=== PATIENT | female | born 1990 | race African-American/Black ===

== ENCOUNTER 2016-11-01 13:56 | Emergency (ER) | payer OTHER ==
[2016-11-01 14:02] VITALS: TEMP 98; BMI 18.2
[2016-11-01 15:40] LABS: BASOPHIL 1.2 % (0-2.0); EOSINOPHIL 3.9 % (0-4.5); MCH 24.9 pg (25.7-33.7); MCHC 32.4 g/dl (32.0-36.0); MEAN CELL VOLUME 76.9 fl (80-96); NEUTROPHILS 66.6 % (42.8-82.8); PLATELET COUNT 205 K/MM3 (134-434); RDW 18.2 % (11.6-15.6); WHITE BLOOD COUNT 5.3 K/mm3 (4.0-10.0)
[2016-11-01 15:42] LABS: ALBUMIN 4.3 g/dl (3.4-5.0); ANION GAP 6 (8-16); BILIRUBIN,TOTAL 1.3 mg/dL (0.2-1.0); CO2 25 mmol/L (21-32); CREATININE 0.6 mg/dL (0.55-1.02); GLUCOSE,RANDOM 80 mg/dL (74-106); SGOT/AST 22 U/L (15-37); SGPT/ALT 16 U/L (12-78); TOT PROT 8.1 g/dl (6.4-8.2)
[2016-11-01 15:44] LABS: ALK PHOS 75 U/L (45-117); TROPONIN I < 0.02 ng/ml (0.00-0.05)
--- NOTE | 2016-11-01 16:16 | PDOC ---
History of Present Illness - General Chief Complaint: Chest Pain Stated Complaint: CHEST TIGHTNESS Time Seen by Provider: 11/01/16 14:29 History Source: Patient Exam Limitations: No Limitations - History of Present Illness Initial Comments: 11/01/16 16:23 25-year-old female presents to the ED with episodic chest tightness to her sternal region that occurred about 2 hours ago and resolved within approximately 15 minutes but decided come to the ER since she has history of mitral valve regurgitation with mitral valve replacement currently on Coumadin. Patient currently has no complaints including shortness of breath, palpitations , nausea, dizziness or chest pain. Patient denies any recent change in her Coumadin or enalapril. Presenting Symptoms: Chest Pain Timing/Duration: reports: resolved prior to arrival Severity/Quality: reports: tightness Location: reports: substernal Chest Pain Radiation: reports: no radiation Activities at Onset: reports: none Nitro Today/Relief: Yes: no nitro taken today Aspirin Received prior to arrival (Core Measure): Yes: no aspirin today Associated Symptoms: Yes: Chest Pain/pressure Past History - Past Medical History Allergies/Adverse Reactions: Allergies Allergy/AdvReac Type Severity Reaction Status Date / Time No Known Allergies Allergy Verified 11/01/16 14:02 Home Medications: Ambulatory Orders Enalapril Maleate [Vasotec -] 5 mg PO DAILY #30 tablet 07/11/15 Warfarin Sodium [Coumadin] 4 mg PO HS #30 tablet 07/11/15 Cardiac Disorders: Yes (VALVE REPLACEMENT) Psychiatric Problems: Yes (PANIC ATTACK) - Surgical History Cardiac Surgery: Yes (VALVE REPLACEMENT) - Reproductive History LMP Normal: Yes Is Patient Now?: No - Immunization History Immunization Up to Date: Yes - Psycho/Social/Smoking Cessation Hx Anxiety: Yes Suicidal Ideation: No Smoking History: Never smoked Have you smoked in the past 12 months: No Information on smoking cessation initiated: No Hx Alcohol Use: No Drug/Substance Use Hx: No Substance Use Type: None Patient Lives Alone: No Lives with/in: parents Review of Systems - Review of Systems Able to Perform ROS?: Yes Constitutional: No: Symptoms Reported HEENTM: No: Symptoms Reported Respiratory: No: Symptoms reported Cardiac (ROS): Yes: Chest Tightness ABD/GI: No: Symptoms Reported : No: Symptoms Reported Musculoskeletal: No: Symptoms Reported Integumentary: No: Symptoms Reported Neurological: No: Symptoms reported *Physical Exam - Vital Signs Last Vital Signs Temp Pulse Resp BP Pulse Ox 98 F 90 18 111/75 99 11/01/16 14:01 11/01/16 14:01 11/01/16 14:01 11/01/16 14:01 11/01/16 14:01 - Physical Exam General Appearance: Yes: Nourished, Appropriately Dressed. No: Apparent Distress Neck: positive: Supple Respiratory/Chest: positive: Lungs Clear, Normal Breath Sounds. negative: Chest Tender, Respiratory Distress, Accessory Muscle Use Cardiovascular: positive: Regular Rhythm, Regular Rate. negative: Murmur Gastrointestinal/Abdominal: positive: Soft. negative: Tenderness Extremity: positive: Normal Capillary Refill. negative: Pedal Edema Integumentary: positive: Normal Color, Warm, Moist Neurologic: positive: Motor Strength 5/5 Heart Score/ECG Review - History History: Slightly suspicious - Electrocardiogram EKG: Normal - Age Age: </= 45 - Risk Factors Based on the list above the patient has:: 1-2 risk factors - Troponin Troponin: </= normal limit - Score Heart Score - Total: 1 - ECG Intrepretation Rhythm: Regular Rhythm (rate 87. No acute changes noted.) ED Treatment Course - LABORATORY CBC & Chemistry Diagram: 11/01/16 15:10 11/01/16 15:10 - ADDITIONAL ORDERS Additional order review: Laboratory Results 11/01/16 11/01/16 16:45 15:10 INR 3.80 H Sodium 138 Potassium 3.8 Chloride 107 Carbon Dioxide 25 Anion Gap 6 L BUN 11 D Creatinine 0.6 Creat Clearance w eGFR > 60 Random Glucose 80 Calcium 9.0 Total Bilirubin 1.3 H AST 22 ALT 16 Alkaline Phosphatase 75 Creatine Kinase 85 Troponin I < 0.02 Total Protein 8.1 Albumin 4.3 11/01/16 15:10 RBC 4.87 MCV 76.9 L MCHC 32.4 RDW 18.2 H MPV 9.0 Neutrophils % 66.6 Lymphocytes % 22.4 Monocytes % 5.9 Eosinophils % 3.9 Basophils % 1.2 Medical Decision Making - Medical Decision Making 11/01/16 16:25 Patient with history of mitral valve replacement and hypertension presents the ED with complaints of episodic chest tightness. Patient initially thought it was cardiac related but due to her history of panic attacks now feels that this episode was related to anxiety since she was just being to a friend who got her upset. Patient does have a cardiac workup initiated, INR, urinalysis, and placed on monitor. 11/01/16 18:03 Laboratory Tests 11/01/16 11/01/16 11/01/16 15:10 15:10 16:45 WBC 5.3 Hgb 12.2 Hct 37.5 Plt Count 205 D Neutrophils % 66.6 INR 3.80 H Sodium 138 Potassium 3.8 Chloride 107 Carbon Dioxide 25 Anion Gap 6 L Creatinine 0.6 Creat Clearance w eGFR > 60 Random Glucose 80 Calcium 9.0 Total Bilirubin 1.3 H AST 22 ALT 16 Creatine Kinase 85 Troponin I < 0.02 Patient states had her INR increased to 5 mg last week and has an appointment tomorrow to recheck it and adjust accordingly. Patient has no complaints since arrival and requesting to go home. I will discharge patient home with recommendations to follow-up with a occupational therapy assistant tomorrow. *DC/Admit/Observation/Transfer Diagnosis at time of Disposition: Sensation of chest tightness, Anticoagulation goal of INR 2.5 to 3.5 - Discharge Dispostion Disposition: HOME Condition at time of disposition: Good - Referrals Referrals: Cas Montilla MD [Primary Care Provider] - - Patient Instructions Printed Discharge Instructions: Warfarin Additional Instructions: I recommend that you continue Coumadin and follow-up with your occupational therapy assistant tomorrow. Return to ED if symptoms return. Eat well-balanced meals and stay hydrated throughout the day. May
[2016-11-01 17:16] LABS: INR 3.8 (0.82-1.09); PROTHROMBIN TIME (PATIENT) 42.9 SEC (9.98-11.88)
[2016-11-01 18:25] VITALS: BP 99/64; PULSE 84
--- NOTE | 2016-11-02 09:43 | EKG ---
Test Reason : Blood Pressure : / mmHG Vent. Rate : 087 BPM Atrial Rate : 087 BPM P-R Int : 160 ms QRS Dur : 084 ms QT Int : 380 ms P-R-T Axes : -02 036 -26 degrees QTc Int : 457 ms NORMAL SINUS RHYTHM NONSPECIFIC ST AND T WAVE ABNORMALITY ABNORMAL ECG WHEN COMPARED WITH ECG OF 04-JAN-2016 11:10, NO SIGNIFICANT CHANGE WAS FOUND Confirmed by JOSEMANUEL ALFORD MD ([id number]) on 11/02/2016 9:43:03 AM Referred By: Confirmed By:JOSEMANUEL ALFORD MD
== END 2016-11-01 18:26 | disposition home or self-care (01) ==
LOC: JER 13:56
DX: R07.89 Other chest pain (principal); F41.9 Anxiety disorder, unspecified; I34.0 Nonrheumatic mitral (valve) insufficiency; Z95.4 Presence of other heart-valve replacement; Z79.01 Long term (current) use of anticoagulants
CPT/HCPCS: 36415; 80053; 82550; 84484; 85025; 85610; 93005; 93010; 99282-25

== ENCOUNTER 2016-12-15 10:24 | Emergency (ER) | payer SELFPAY ==
[2016-12-15 10:37] VITALS: BP 111/66; PULSE 89; TEMP 98; BMI 18.2
[2016-12-15 11:40] LABS: INR 2.11 (0.82-1.09); PROTHROMBIN TIME (PATIENT) 23.6 SEC (9.98-11.88)
--- NOTE | 2016-12-15 12:17 | PDOC ---
History of Present Illness - General Chief Complaint: Revisit, Lab Variance Stated Complaint: BLOOD WORK Time Seen by Provider: 12/15/16 10:45 History Source: Patient Exam Limitations: No Limitations - History of Present Illness Initial Comments: 12/15/16 12:11 Here for repeat INR; had manny replacement Severity: mild Associated Symptoms: reports: denies symptoms Past History - Past Medical History Allergies/Adverse Reactions: Allergies Allergy/AdvReac Type Severity Reaction Status Date / Time No Known Allergies Allergy Verified 12/15/16 10:35 Home Medications: Ambulatory Orders Enalapril Maleate [Vasotec -] 5 mg PO DAILY #30 tablet 07/11/15 Warfarin Sodium [Coumadin] 4 mg PO HS #30 tablet 11/01/16 Cardiac Disorders: Yes (VALVE REPLACEMENT) Psychiatric Problems: Yes (PANIC ATTACK) - Surgical History Cardiac Surgery: Yes (VALVE REPLACEMENT) - Immunization History Immunization Up to Date: Yes - Psycho/Social/Smoking Cessation Hx Anxiety: Yes Suicidal Ideation: No Smoking History: Never smoked Have you smoked in the past 12 months: No Hx Alcohol Use: No Drug/Substance Use Hx: No Substance Use Type: None Review of Systems - Review of Systems Constitutional: Yes: Malaise. No: Chills, Fever HEENTM: No: Symptoms Reported Respiratory: No: Symptoms reported Cardiac (ROS): No: Symptoms Reported ABD/GI: No: Symptoms Reported *Physical Exam - Vital Signs Last Vital Signs Temp Pulse Resp BP Pulse Ox 98.0 F 89 18 111/66 98 12/15/16 10:34 12/15/16 10:34 12/15/16 10:34 12/15/16 10:34 12/15/16 10:34 - Physical Exam General Appearance: Yes: Appropriately Dressed. No: Apparent Distress HEENT: positive: TMs Normal, Pharynx Normal Neck: negative: Tender, Rigid Respiratory/Chest: positive: Lungs Clear ED Treatment Course - ADDITIONAL ORDERS Additional order review: Laboratory Results 12/15/16 11:03 INR 2.11 H D Medical Decision Making - Medical Decision Making 12/15/16 12:14 Please call local MD on saturday and review lab value; your medication May need adjustment *DC/Admit/Observation/Transfer Diagnosis at time of Disposition: Laboratory test - Discharge Dispostion Disposition: HOME Condition at time of disposition: Stable Admit: No - Patient Instructions Additional Instructions: please call Local MD on Saturday; your Coumadin dosage may need adjustment
== END 2016-12-15 12:23 | disposition home or self-care (01) ==
LOC: SUPCPDRO 10:24 → JERFT 10:24
DX: D68.8 Other specified coagulation defects (principal); Z95.2 Presence of prosthetic heart valve; Z79.01 Long term (current) use of anticoagulants
CPT/HCPCS: 36415; 85610; 99281-25

== ENCOUNTER 2017-06-17 21:44 | Emergency (ER) | payer SELFPAY ==
[2017-06-17 21:58] VITALS: BMI 18.2
[2017-06-17] MEDS ORDERED: ACETAMINOPHEN 325 MG TABLET (FP) PO ONE (22:36)
--- NOTE | 2017-06-17 22:36 | PDOC ---
History of Present Illness - General Chief Complaint: Cold Symptoms Stated Complaint: COLD SYMPTOMS Time Seen by Provider: 06/17/17 22:24 History Source: Patient Exam Limitations: No Limitations - History of Present Illness Initial Comments: 06/17/17 22:34 Patient is a 26-year-old female with past medical history of mitral valve replacement on Coumadin, who presents to the emergency department with 1 day of body aches, chest pain, congestion, sore throat. Patient states that she is not feeling well and is tearful upon entrance into the exam room. She states that she has not taken her Coumadin tonight because she does not feel well. She has not tried taking Tylenol for her symptoms. Admits to subjective fevers and chills, cough, nausea. Denies shortness of breath, wheezing, diarrhea. Past History - Travel Traveled outside of the country in the last 30 days: No Close contact w/someone who was outside of country & ill: No - Past Medical History Allergies/Adverse Reactions: Allergies Allergy/AdvReac Type Severity Reaction Status Date / Time No Known Allergies Allergy Verified 06/17/17 21:58 Home Medications: Ambulatory Orders Enalapril Maleate [Vasotec -] 5 mg PO DAILY #30 tablet 07/11/15 Warfarin Sodium [Coumadin] 4 mg PO HS #30 tablet 11/01/16 Cardiac Disorders: Yes (Mitral VALVE [id number]) Psychiatric Problems: Yes (PANIC ATTACK) - Surgical History Cardiac Surgery: Yes (VALVE REPLACEMENT 2011) - Immunization History Immunization Up to Date: Yes - Suicide/Smoking/Psychosocial Hx Smoking History: Never smoked Have you smoked in the past 12 months: No Information on smoking cessation initiated: No Hx Alcohol Use: No Drug/Substance Use Hx: No Substance Use Type: None Review of Systems - Review of Systems Able to Perform ROS?: Yes Comments:: 06/17/17 23:38 CONSTITUTIONAL: Present: fevers (subjective), chills, generalized weakness. Absent: diaphoresis , malaise, loss of appetite HEENT: Present: rhinorrhea, nasal congestion. Absent: difficulty swallowing, mouth swelling, ear pain, eye pain, visual Changes CARDIOVASCULAR: Present: Chest pain Absent: loss of consciousness, palpitations, irregular heart rate, peripheral edema RESPIRATORY: Present: cough Absent: cough, shortness of breath, dyspnea with exertion, orthopnea, wheezing, stridor, hemoptysis GASTROINTESTINAL: Present: nausea Absent: abdominal pain, abdominal distension, nausea, vomiting, diarrhea, constipation, melena, hematochezia GENITOURINARY: Absent: dysuria, frequency, urgency, hesitancy, hematuria, flank pain, genital pain MUSCULOSKELETAL: Absent: myalgia, arthralgia, joint swelling SKIN: Absent: rash, itching, pallor HEMATOLOGIC/IMMUNOLOGIC: Absent: easy bleeding, easy bruising, lymphadenopathy, frequent infections ENDOCRINE: Absent: unexplained weight gain, unexplained weight loss, heat intolerance, cold intolerance NEUROLOGIC: Absent: headache, focal weakness or paresthesias, dizziness, unsteady gait, seizure, mental status changes, bladder or bowel incontinence PSYCHIATRIC: Absent: anxiety, depression, suicidal or homicidal ideation, hallucinations. Is the patient limited [place] proficient: No *Physical Exam - Vital Signs Last Vital Signs Temp Pulse Resp BP Pulse Ox 98.5 F 73 18 109/75 100 06/17/17 21:55 06/17/17 21:55 06/17/17 21:55 06/17/17 21:55 06/17/17 21:55 - Physical Exam Comments: 06/17/17 23:39 GENERAL: Well developed, well nourished. Awake and alertx3. Mild distress, laying curled on exam bed, tearful on exam. HEENT: Normocephalic, atraumatic. PERRLA, EOMI. No conjunctival pallor. Sclera are non- icteric. Moist mucous membranes. Oropharynx is clear. NECK: Supple. Full ROM. No JVD. Carotid pulses 2+ and symmetric, without bruits. No thyromegaly. (+) b/l lymphadenopathy. CARDIOVASCULAR: Regular rate and rhythm. Midsystolic click. No murmurs, rubs, or gallops. Distal pulses are 2+ and symmetric. PULMONARY: No evidence of respiratory distress. Lungs clear to auscultation bilaterally. No wheezing, rales or rhonchi. ABDOMINAL: Soft. Non-tender. Non-distended. No rebound or guarding. No organomegaly. Normoactive bowel sounds. MUSCULOSKELETAL Normal range of motion at all joints. No bony deformities or tenderness. No CVA tenderness. EXTREMITIES: No cyanosis. No clubbing. No edema. No calf tenderness. SKIN: Warm and dry. Normal capillary refill. No rashes. No jaundice. NEUROLOGICAL: Alert, awake, appropriate. Cranial nerves 2-12 intact. No deficits to light touch and temperature in face, upper extremities and lower extremities. No motor deficits in the in face, upper extremities and lower extremities. Normoreflexic in the upper and lower extremities. Normal speech. Toes are down- going bilaterally. Gait is normal without ataxia. PSYCHIATRIC: Cooperative. Good eye contact. Appropriate mood and affect. ED Treatment Course - LABORATORY CBC & Chemistry Diagram: 06/18/17 00:50 06/18/17 00:50 Medical Decision Making - Medical Decision Making 06/17/17 23:40 Patient is a 26-year-old female past medical history of mitral valve replacement on Coumadin, who presents to the emergency department with 1 day of fevers and generalized weakness, body aches, chest pain and congestion. Patient has not received her flu vaccination this year. 1.flu swab, throat culture 2.EKG 3.Tylenol 4.transfer to main ED. Sign out was given to Yaneth Tolbert NP, as fast track is currently closed. Informed her of patient's status. Waiting on labs. *DC/Admit/Observation/Transfer Diagnosis at time of Disposition: Viral URI Anemia Qualifiers: Anemia type: unspecified type Qualified Code(s): D64.9 - Anemia, unspecified - Discharge Dispostion Disposition: HOME Condition at time of disposition: Good - Referrals Referrals: Cas Montilla MD [Primary Care Provider] - Call tomorrow - Patient Instructions Printed Discharge Instructions: DI for Common Cold Additional Instructions: drink plenty of fluids. follow up with your doctor tomorrow. take tylenol as needed for fever.
[2017-06-17] MEDS ORDERED: ACETAMINOPHEN 325 MG TABLET (FP) ONE (22:39)
--- NOTE | 2017-06-17 22:53 | PDOC ---
*Physical Exam - Vital Signs Last Vital Signs Temp Pulse Resp BP Pulse Ox 98.5 F 73 18 109/75 100 06/17/17 21:55 06/17/17 21:55 06/17/17 21:55 06/17/17 21:55 06/17/17 21:55 - Physical Exam General Appearance: Yes: Appropriately Dressed HEENT: positive: Tonsillar Erythema, Nasal Congestion Neck: positive: Lymphadenopathy (R), Lymphadenopathy (L) Gastrointestinal/Abdominal: positive: Normal Bowel Sounds, Soft Extremity: positive: Normal Capillary Refill, Normal Inspection, Normal Range of Motion Integumentary: positive: Normal Color, Dry, Warm Neurologic: positive: Fully Oriented, Alert, Normal Mood/Affect ED Treatment Course - LABORATORY CBC & Chemistry Diagram: 06/18/17 00:50 06/18/17 00:50 - RADIOLOGY Radiology Studies Ordered: Category Date Time Status CHEST PA & LAT [RAD] Stat Radiology 06/17/17 22:53 Ordered - Medications Given in the ED: ED Medications Discontinued Medications Generic Name Dose Route Start Last Admin Trade Name Freq PRN Reason Stop Dose Admin Acetaminophen 650 mg 06/17/17 22:36 06/17/17 22:40 Tylenol - PO 06/17/17 22:37 650 mg ONCE ONE Administration Progress Note - Progress Note Progress Note: A: viral syndrome P: cbc cmp normal saline bolus influenza rapid strep chest xray: negative. surgical changes. no acute pathology. ekg Medical Decision Making - Medical Decision Making 06/17/17 23:34 rapid strep neg flu: neg and chest xray pending. 06/18/17 02:00 patient feels better. hgb 8.1 patient has a history of anemia. advised iron supplement. patient will follow up with Dr. Montilla this week. will d/c home. 06/18/17 02:32 patient is requesting her missed dose of coumadin 4mg x1. will give dose prior to discharge 06/18/17 06:18 06/18/17 06:18 *DC/Admit/Observation/Transfer Diagnosis at time of Disposition: Viral URI Anemia Qualifiers: Anemia type: unspecified type Qualified Code(s): D64.9 - Anemia, unspecified - Discharge Dispostion Disposition: HOME Condition at time of disposition: Good - Referrals Referrals: Cas Montilla MD [Primary Care Provider] - Call tomorrow - Patient Instructions Printed Discharge Instructions: DI for Common Cold Additional Instructions: drink plenty of fluids. follow up with your doctor tomorrow. take tylenol as needed for fever.
[2017-06-17] MEDS ORDERED: SODIUM CHLORIDE 500 ML IV STA (23:47)
[2017-06-18 01:16] LABS: BASOPHIL 0.4 % (0-2.0); EOSINOPHIL 3.1 % (0-4.5); MCH 22.5 pg (25.7-33.7); MCHC 31.8 g/dl (32.0-36.0); MEAN CELL VOLUME 70.9 fl (80-96); MEAN PLT VOLUME 8.6 fl (7.5-11.1); NEUTROPHILS 79.6 % (42.8-82.8); PLATELET COUNT 253 K/MM3 (134-434); RDW 18.1 % (11.6-15.6); WHITE BLOOD COUNT 9.7 K/mm3 (4.0-10.0)
[2017-06-18] MEDS ORDERED: WARFARIN NA 2 MG TABLET (UD) PO ONE (02:32)
[2017-06-18 02:53] VITALS: BP 100/78; PULSE 80; TEMP 97.8
--- NOTE | 2017-06-18 14:14 | EKG ---
Test Reason : Blood Pressure : / mmHG Vent. Rate : 089 BPM Atrial Rate : 089 BPM P-R Int : 132 ms QRS Dur : 086 ms QT Int : 376 ms P-R-T Axes : 014 046 -38 degrees QTc Int : 457 ms NORMAL SINUS RHYTHM ST-T ABNORMALITIES IN RIGHT PRECORDIAL LEADS MAY BE DUE TO PERSISTENT JUVENILE T WAVE PATTERN NONSPECIFIC ST-T ABNORMALITIES IN THE INFERIOR LEADS ABNORMAL ECG WHEN COMPARED WITH ECG OF 01-NOV-2016 14:03, NO MAJOR CHANGES SEEN. NO CLINICAL INFORMATION IS AVAILABLE REPEAT INDICATED Confirmed by HUNTER CALDERON MD ([id number]) on 06/18/2017 2:14:00 PM Referred By: Confirmed By:HUNTER CALDERON MD
== END 2017-06-18 02:54 | disposition home or self-care (01) ==
LOC: JERFT 21:44 → JER 21:44
PROC: 3E0337Z Introduction of Electrolytic and Water Balance Substance into Peripheral Vein, Percutaneous Approach (ICD-10-PCS; principal; 2017-06-17)
DX: J06.9 Acute upper respiratory infection, unspecified (principal); B97.89 Other viral agents as the cause of diseases classified elsewhere; D64.9 Anemia, unspecified; Z95.2 Presence of prosthetic heart valve; Z79.01 Long term (current) use of anticoagulants
CPT/HCPCS: 36415; 71020-TC; 85025; 87070; 87430; 87804; 93005; 93010; 99282-25

== ENCOUNTER 2017-10-02 18:32 | Emergency (ER) | payer OTHER ==
--- NOTE | 2017-10-02 19:48 | PDOC ---
Rapid Medical Evaluation Time Seen by Provider: 10/02/17 19:44 Medical Evaluation: Allergies Allergy/AdvReac Type Severity Reaction Status Date / Time No Known Allergies Allergy Verified 06/17/17 21:58 10/02/17 19:45 I have performed a brief in-person evaluation of this patient. The patient presents with a chief complaint of: hx of mitral valve replacement in 2011 on Coumadin) , wants INR checked, denies any symptoms, "i haven't taken my coumadin in a long time" Pertinent physical exam findings: well appearing I have ordered the following: PT/INR The patient will proceed to the ED for further evaluation. Discharge Disposition - Diagnosis Laboratory test - Referrals - Patient Instructions - Post Discharge Activity
[2017-10-02 19:51] VITALS: BP 140/70; PULSE 89; TEMP 97.9; BMI 18.2
--- NOTE | 2017-10-02 20:32 | PDOC ---
History of Present Illness - General Stated Complaint: EVALUATION Time Seen by Provider: 10/02/17 19:44 History Source: Patient Exam Limitations: No Limitations - History of Present Illness Initial Comments: 10/02/17 20:28 This is a 26-year-old female with medical history of mitral valve replacements who presents to emergency department requesting INR checked. Patient stated she went to her primary doctor and was told her insurance wouldn't cover her INR visits and that the primary doctor's machine was broken to check INR results. Patient denies chest pain, shortness of breath, dizziness, palpitations, abdominal pain, nausea, vomiting, diarrhea. Patient states she has an appointment with her tyre retreader at the end of the month. Patient takes 4 mg of warfarin daily for "many years." Past History - Past Medical History Allergies/Adverse Reactions: Allergies Allergy/AdvReac Type Severity Reaction Status Date / Time No Known Allergies Allergy Verified 10/02/17 19:48 Home Medications: Ambulatory Orders Enalapril Maleate [Vasotec -] 5 mg PO DAILY #30 tablet 07/11/15 Warfarin Sodium [Coumadin] 4 mg PO HS #30 tablet 11/01/16 Cardiac Disorders: Yes (Mitral VALVE [id number]) COPD: No Psychiatric Problems: Yes (PANIC ATTACK) - Surgical History Cardiac Surgery: Yes (VALVE REPLACEMENT 2011) - Immunization History Immunization Up to Date: Yes - Suicide/Smoking/Psychosocial Hx Smoking History: Never smoked Have you smoked in the past 12 months: No Information on smoking cessation initiated: No Hx Alcohol Use: No Drug/Substance Use Hx: No Substance Use Type: None Review of Systems - Review of Systems Able to Perform ROS?: Yes Is the patient limited [place] proficient: No Constitutional: No: Symptoms Reported HEENTM: No: Symptoms Reported Respiratory: No: Symptoms reported Cardiac (ROS): No: Symptoms Reported ABD/GI: No: Symptoms Reported : No: Symptoms Reported Musculoskeletal: No: Symptoms Reported Integumentary: No: Symptoms Reported Neurological: No: Symptoms reported *Physical Exam - Vital Signs Last Vital Signs Temp Pulse Resp BP Pulse Ox 97.9 F 89 20 140/70 97 10/02/17 19:49 10/02/17 19:49 10/02/17 19:49 10/02/17 19:49 10/02/17 19:49 - Physical Exam General Appearance: Yes: Appropriately Dressed. No: Apparent Distress HEENT: positive: Normal ENT Inspection Respiratory/Chest: positive: Lungs Clear, Normal Breath Sounds. negative: Respiratory Distress, Accessory Muscle Use Cardiovascular: positive: Regular Rhythm, Regular Rate, S1, S2. negative: Edema , Murmur Integumentary: positive: Normal Color Neurologic: positive: Fully Oriented, Alert, Normal Mood/Affect Medical Decision Making - Medical Decision Making 10/02/17 20:30 A/P: 26-year-old female with history of mitral valve replacements requesting INR checked. Patient currently asymptomatic without bleeding. Will check PT/INR I will discharge the patient if INR is therapeutic 10/02/17 21:42 INR 4.51 Patient instructed to hold her Coumadin tonight follow-up with Dr. Guevara. Patient instructed to call tyre retreader make an appointment within the week. *DC/Admit/Observation/Transfer Diagnosis at time of Disposition: Supratherapeutic INR - Discharge Dispostion Disposition: HOME Condition at time of disposition: Stable Admit: No - Referrals Referrals: Russel Curiel [Primary Care Provider] - - Patient Instructions Additional Instructions: Do not take her Coumadin tonight. Resume Coumadin tomorrow. Make an appointment with her tyre retreader to be seen by Saturday. You have been given a recommendation to see Dr. Guevara. Call to make an appointment to be seen. Return to emergency department for chest pain, shortness of breath, bleeding or any other concerns. Thank you very much for choosing us to provide your emergent healthcare needs. - Post Discharge Activity
[2017-10-02 21:36] LABS: INR 4.51 (0.82-1.09)
== END 2017-10-02 21:50 | disposition home or self-care (01) ==
LOC: JERFT 18:32
DX: D68.8 Other specified coagulation defects (principal); Z51.81 Encounter for therapeutic drug level monitoring; Z79.01 Long term (current) use of anticoagulants; Z95.2 Presence of prosthetic heart valve
CPT/HCPCS: 36415; 85610; 99281-25

== ENCOUNTER 2017-12-30 18:51 | Emergency (ER) | payer OTHER ==
[2017-12-30] MEDS ORDERED: ACETAMINOPHEN 325 MG TABLET (FP) PO ONE (19:13)
--- NOTE | 2017-12-30 19:13 | PDOC ---
Rapid Medical Evaluation Time Seen by Provider: 12/30/17 19:11 Medical Evaluation: Allergies Allergy/AdvReac Type Severity Reaction Status Date / Time No Known Allergies Allergy Verified 10/02/17 19:48 12/30/17 19:11 I have performed a brief in-person evaluation of this patient. The patient presents with a chief complaint of: MCGEE and left thigh pain for 1 day Pertinent physical exam findings: No focal deficits I have ordered the following: CBC, PT, CMP, Tylenol The patient will proceed to the ED for further evaluation. Discharge Disposition - Diagnosis Headache - Referrals - Patient Instructions - Post Discharge Activity
[2017-12-30 19:19] VITALS: BP 107/54; PULSE 109; TEMP 98.4; BMI 18.2
[2017-12-30 19:32] LABS: BASO % 0.9 % (0-2.0); EOS % 3.3 % (0-4.5); HEMATOCRIT 33.1 % (32.4-45.2); HEMOGLOBIN 10.3 GM/dL (10.7-15.3); LYMPH % 15.4 % (8-40); MCH 22.1 pg (25.7-33.7); MCHC 31.3 g/dl (32.0-36.0); MEAN CELL VOLUME 70.7 fl (80-96); MEAN PLT VOLUME 8.4 fl (7.5-11.1); NEUT % 72.4 % (42.8-82.8); PLATELET COUNT 198 K/MM3 (134-434); RBC 4.68 M/mm3 (3.60-5.2); RDW 23.1 % (11.6-15.6)
--- NOTE | 2017-12-30 19:43 | PDOC ---
History of Present Illness - General History Source: Patient - History of Present Illness Timing/Duration: other (this am) Associated Symptoms: denies: nausea/vomiting <Elizabeth Hernández - Last Filed: 12/30/17 19:52> <Spencer Cervanets - Last Filed: 12/30/17 21:14> - General Chief Complaint: Pain, Acute Stated Complaint: PAIN Time Seen by Provider: 12/30/17 19:11 Past History - Past Medical History Cardiac Disorders: Yes (Mitral VALVE [id number]) COPD: No Psychiatric Problems: Yes (PANIC ATTACK) - Surgical History Cardiac Surgery: Yes (VALVE REPLACEMENT 2011) - Immunization History Immunization Up to Date: Yes - Suicide/Smoking/Psychosocial Hx Smoking History: Never smoked Have you smoked in the past 12 months: No Hx Alcohol Use: No Drug/Substance Use Hx: No Substance Use Type: None <Elizabeth Hernández - Last Filed: 12/30/17 19:52> <Spencer Cervantes - Last Filed: 12/30/17 21:14> - Past Medical History Allergies/Adverse Reactions: Allergies Allergy/AdvReac Type Severity Reaction Status Date / Time No Known Allergies Allergy Verified 12/30/17 19:17 Home Medications: Ambulatory Orders Enalapril Maleate [Vasotec -] 5 mg PO DAILY #30 tablet 07/11/15 Warfarin Sodium [Coumadin] 4 mg PO HS #30 tablet 11/01/16 Review of Systems - Review of Systems Constitutional: No: Chills, Fever Respiratory: No: Shortness of Breath Cardiac (ROS): No: Chest Pain, Lightheadedness, Palpitations, Syncope Integumentary: Yes: Rash Neurological: Yes: Headache. No: Numbness, Tingling, Weakness, Dizziness <Elizabeth Hernández - Last Filed: 12/30/17 19:52> *Physical Exam - Vital Signs Last Vital Signs Temp Pulse Resp BP Pulse Ox 98.4 F 109 H 18 107/54 96 12/30/17 19:17 12/30/17 19:17 12/30/17 19:17 12/30/17 19:17 12/30/17 19:17 - Physical Exam General Appearance: Yes: Appropriately Dressed. No: Apparent Distress HEENT: positive: Normal Voice Neck: positive: Supple Respiratory/Chest: negative: Respiratory Distress Extremity: positive: Other Integumentary: positive: Dry, Warm, Bruising (~1cm erythematous macule to R thigh, non-tender, non-blanchable), Other Neurologic: positive: president/gm production & live experiences II-XII NML intact, Fully Oriented, Alert, Normal Mood/ Affect, Motor Strength 5/5 <Elizabeth Hernández - Last Filed: 12/30/17 19:52> - Vital Signs Last Vital Signs Temp Pulse Resp BP Pulse Ox 98.4 F 109 H 18 107/54 96 12/30/17 19:17 12/30/17 19:17 12/30/17 19:17 12/30/17 19:17 12/30/17 19:17 <Spencer Cervantes - Last Filed: 12/30/17 21:14> ED Treatment Course - LABORATORY CBC & Chemistry Diagram: 12/30/17 19:20 12/30/17 19:20 - ADDITIONAL ORDERS Additional order review: 12/30/17 19:20 RBC 4.68 D MCV 70.7 L MCHC 31.3 L RDW 23.1 H D MPV 8.4 Neutrophils % 72.4 Lymphocytes % 15.4 D Monocytes % 8.0 Eosinophils % 3.3 Basophils % 0.9 <Elizabeth Hernández - Last Filed: 12/30/17 19:52> - LABORATORY CBC & Chemistry Diagram: 12/30/17 19:20 12/30/17 19:20 - ADDITIONAL ORDERS Additional order review: Laboratory Results 12/30/17 12/30/17 19:20 19:20 PT with INR 26.90 H INR 2.38 H D Sodium 140 Potassium 4.2 Chloride 109 H Carbon Dioxide 24 Anion Gap 7 L BUN 11 Creatinine 0.9 Random Glucose 90 Calcium 8.6 12/30/17 19:20 RBC 4.68 D MCV 70.7 L MCHC 31.3 L RDW 23.1 H D MPV 8.4 Neutrophils % 72.4 Lymphocytes % 15.4 D Monocytes % 8.0 Eosinophils % 3.3 Basophils % 0.9 - Medications Given in the ED: ED Medications Discontinued Medications Generic Name Dose Route Start Last Admin Trade Name Freq PRN Reason Stop Dose Admin Acetaminophen 650 mg 12/30/17 19:13 12/30/17 20:00 Tylenol - PO 12/30/17 19:14 650 mg ONCE ONE Administration <Spencer Cervantes - Last Filed: 12/30/17 21:14> Medical Decision Making - Medical Decision Making 12/30/17 19:38 27-year-old female, s/p mitral valve replacement remotely, has been on coumadin for many years, here for evaluation after patient noticed oozing to her right thigh on awakening this a.m. Does not remember any specific injuries. Last INR was 2.[address] Montilla's office 2 weeks ago per patient. 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 Patient also complaining of vague right-sided headache since yesterday, similar to headaches prior to her menses. States MCGEE has since improved spontaneously. States she is due for her menses any day now. No dizziness, visual changes, photophobia, n/v. States she is mainly here for INR check given spontaneous bruising See exam Spontaneous ecchymosis to R thigh No trauma -will check INR (therapeutic range 2.5-3.5) given coumadin use -anticipate dc if blood work normal MCGEE Recurrent and premenstrual as in the past Well sivan and alert w/ intact neuro exam No suspicion for serious intracranial pathology at this time -To continue tylenol as needed 12/30/17 19:52 Pt signed out to VEENA Cervantes pending labs at this time <Elizabeth Hernández - Last Filed: 12/30/17 19:52> *DC/Admit/Observation/Transfer <Elizabeth Hernández - Last Filed: 12/30/17 19:52> - Discharge Dispostion Decision to Admit order: No <Spencer Cervantes - Last Filed: 12/30/17 21:14> Diagnosis at time of Disposition: Ecchymosis - Discharge Dispostion Disposition: HOME Condition at time of disposition: Stable - Referrals Referrals: Lona Montilla [Primary Care Provider] - - Patient Instructions Printed Discharge Instructions: DI for Hematoma (Bruise) Additional Instructions: Your Coumadin level is slightly below normal range of where it should be for valvular prophylaxis. Follow up with your contract attorney in the next day or 2 to have this level adjusted the bruise on your leg should resolve within the next few days. Return to the emergency room if her symptoms worsen or go unresolved prior to follow-up
[2017-12-30 19:52] LABS: INR 2.38 (0.82-1.09); PROTHROMBIN TIME (PATIENT) 26.9 SEC (9.7-13.0)
[2017-12-30] MEDS ORDERED: ACETAMINOPHEN 325 MG TABLET (FP) ONE (19:57)
[2017-12-30 20:02] LABS: ANION GAP 7 (8-16); BLOOD UREA NITROGEN 11 mg/dL (7-18); CALCIUM 8.6 mg/dL (8.5-10.1); CHLORIDE 109 mmol/L (98-107); CO2 24 mmol/L (21-32); CREATININE 0.9 mg/dL (0.55-1.02); GLUCOSE,RANDOM 90 mg/dL (74-106); POTASSIUM 4.2 mmol/L (3.5-5.1); SODIUM 140 mmol/L (136-145)
== END 2017-12-30 21:17 | disposition home or self-care (01) ==
LOC: JERFT 18:51
DX: R51 Headache (principal); R23.3 Spontaneous ecchymoses; Z79.01 Long term (current) use of anticoagulants; Z95.2 Presence of prosthetic heart valve
CPT/HCPCS: 36415; 80048; 85025; 85610; 99281-25

== ENCOUNTER 2018-04-12 12:53 | Emergency (ER) | payer OTHER ==
[2018-04-12 13:02] VITALS: BP 104/54; PULSE 103; TEMP 98.4; BMI 18.2
--- NOTE | 2018-04-12 13:26 | PDOC ---
History of Present Illness - General Chief Complaint: Sore Throat Stated Complaint: CHEST HURTING - History of Present Illness Initial Comments: 04/12/18 13:23 27-year-old female with night sweats and subjective fever as well as chills starting last night and facial congestion as well as cough. She has a past medical history significant for mitral valve prolapse she takes Coumadin and enalapril. Past History - Past Medical History Allergies/Adverse Reactions: Allergies Allergy/AdvReac Type Severity Reaction Status Date / Time No Known Allergies Allergy Verified 04/12/18 12:58 Home Medications: Ambulatory Orders Amox-Tr/K Cl [Augmentin - 875Mg Tablet] 1 tab PO BID #20 tablet 04/12/18 Cardiac Disorders: Yes (Mitral VALVE [id number]) COPD: No Psychiatric Problems: Yes (PANIC ATTACK) - Surgical History Cardiac Surgery: Yes (VALVE REPLACEMENT 2011) - Immunization History Immunization Up to Date: Yes - Suicide/Smoking/Psychosocial Hx Smoking History: Never smoked Have you smoked in the past 12 months: No Hx Alcohol Use: No Drug/Substance Use Hx: No Substance Use Type: None Review of Systems - Review of Systems Constitutional: Yes: Chills, Fever, Malaise, Night Sweats, Weakness Respiratory: Yes: Cough All Other Systems: Reviewed and Negative *Physical Exam - Vital Signs Last Vital Signs Temp Pulse Resp BP Pulse Ox 98.4 F 103 H 12 104/54 96 04/12/18 12:59 04/12/18 12:59 04/12/18 12:59 04/12/18 12:59 04/12/18 12:59 - Physical Exam Comments: HEAD: NC/AT EYES: Conjuntiva clear Ears: Canals and TM's normal NOSE: No d/c THROAT: Moist mucous membrances, oral pharanx clear, uvula midline NECK: Supple without adenopathy CARDIAC: S1 S2 LUNGS: CTA Full and Equal breath sounds ABDOMEN: Soft NT ND MS: Full ROM in all joints without edema NEUROLOGIC: No gross sensory or motor deficits, NVID SKIN: Normal color and temperature no lesions or rashes 04/12/18 13:24 Medical Decision Making - Medical Decision Making I will treat her with Augmentin do to her mitral valve prolapse 04/12/18 13:24 *DC/Admit/Observation/Transfer Diagnosis at time of Disposition: Sinusitis - Discharge Dispostion Disposition: HOME Condition at time of disposition: Stable Decision to Admit order: No - Referrals Referrals: Cas Montilla MD [Primary Care Provider] - - Patient Instructions Printed Discharge Instructions: Sinusitis, DI for Sinusitis Additional Instructions: Take the antibiotics as directed and finish the entire course. Follow-up in the emergency room should her symptoms worsen or go unresolved. Otherwise follow up with her primary care physician in 2-3 days for further evaluation and treatment options. - Post Discharge Activity
[2018-04-12] MEDS ORDERED: ACETAMINOPHEN 500 MG TABLET (FP) ONE (13:28)
[2018-04-12] MEDS ORDERED: ACETAMINOPHEN 500 MG TABLET (FP) PO ONE (13:28)
== END 2018-04-12 13:30 | disposition home or self-care (01) ==
LOC: JERFT 12:53
DX: J01.90 Acute sinusitis, unspecified (principal); Z79.01 Long term (current) use of anticoagulants; Z95.2 Presence of prosthetic heart valve; F41.9 Anxiety disorder, unspecified
CPT/HCPCS: 99281-25

== ENCOUNTER 2018-04-14 20:10 | Emergency (ER) | payer OTHER ==
[2018-04-14 20:23] VITALS: BP 113/83; PULSE 100; TEMP 98.2; BMI 18.2
--- NOTE | 2018-04-14 20:23 | PDOC ---
Rapid Medical Evaluation Chief Complaint: Lightheaded Time Seen by Provider: 04/14/18 20:21 Medical Evaluation: Allergies Allergy/AdvReac Type Severity Reaction Status Date / Time No Known Allergies Allergy Verified 04/12/18 12:58 Vital Signs Temp Pulse Resp BP Pulse Ox 98.2 F 100 H 20 113/83 90 L 04/14/18 20:18 04/14/18 20:18 04/14/18 20:18 04/14/18 20:18 04/14/18 20:18 04/14/18 20:24 This is a 27-year-old s/p mitral valve replacement 2011 and PE 2014 on warfarin who presents with 3 days of cough, nasal congestion, and malaise. No chest pain , feels "congested." Seen 04/12 and rx Augmentin for sinusitis which she did not take. V/s on arrival notable for P 100 and SpO2 90%. Alert, oriented, no distress. Lungs CTAB, no tachypnea, speaking full sentences. -Basic labs including INR (patient states has been adherent to Coumadin, notes recent dose increase from 4mg to 5mg) -Pgu -CXR -To Main ED for further evaluation Discharge Disposition - Diagnosis H/O mitral valve replacement with mechanical valve, Cough, Hypoxia - Referrals - Patient Instructions - Post Discharge Activity
--- NOTE | 2018-04-14 20:47 | PDOC ---
History of Present Illness - General Chief Complaint: Chest Pain Stated Complaint: COLD SYMPTOMS Time Seen by Provider: 04/14/18 20:21 Past History - Past Medical History Allergies/Adverse Reactions: Allergies Allergy/AdvReac Type Severity Reaction Status Date / Time No Known Allergies Allergy Verified 04/12/18 12:58 Home Medications: Ambulatory Orders Warfarin Sodium [Coumadin] 5 mg PO HS 04/14/18 Cardiac Disorders: Yes (Mitral VALVE [id number]) COPD: No DVT: No Dementia: No Psychiatric Problems: Yes (PANIC ATTACK) Other medical history: Pulmonary Embolus - Surgical History Cardiac Surgery: Yes (mitral VALVE REPLACEMENT 2011) - Immunization History Immunization Up to Date: Yes - Suicide/Smoking/Psychosocial Hx Smoking History: Never smoked Have you smoked in the past 12 months: No Information on smoking cessation initiated: No Hx Alcohol Use: No Drug/Substance Use Hx: No Substance Use Type: None *Physical Exam - Vital Signs Last Vital Signs Temp Pulse Resp BP Pulse Ox 98.2 F 100 H 20 113/83 90 L 04/14/18 20:18 04/14/18 20:18 04/14/18 20:18 04/14/18 20:18 04/14/18 20:18 *DC/Admit/Observation/Transfer Diagnosis at time of Disposition: H/O mitral valve replacement with mechanical valve, Cough, Hypoxia - Referrals - Patient Instructions - Post Discharge Activity
[2018-04-14 21:55] LABS: BASO % 1.2 % (0-2.0); EOS % 5.9 % (0-4.5); HEMATOCRIT 33.3 % (32.4-45.2); HEMOGLOBIN 10.5 GM/dL (10.7-15.3); LYMPH % 20.4 % (8-40); MCH 21.3 pg (25.7-33.7); MCHC 31.6 g/dl (32.0-36.0); MEAN CELL VOLUME 67.3 fl (80-96); MEAN PLT VOLUME 8.6 fl (7.5-11.1); MONO % 6.8 % (3.8-10.2); NEUT % 65.7 % (42.8-82.8); PLATELET COUNT 215 K/MM3 (134-434); RBC 4.94 M/mm3 (3.60-5.2); WHITE BLOOD COUNT 6.9 K/mm3 (4.0-10.0)
[2018-04-14 22:11] LABS: INR 5.84 (0.83-1.09)
[2018-04-14 22:22] LABS: ALBUMIN 4.2 g/dl (3.4-5.0); ALK PHOS 87 U/L (45-117); ANION GAP 8 MMOL/L (8-16); BILIRUBIN,TOTAL 1.2 mg/dL (0.2-1.0); BLOOD UREA NITROGEN 10 mg/dL (7-18); CALCIUM 8.9 mg/dL (8.5-10.1); CHLORIDE 106 mmol/L (98-107); CO2 26 mmol/L (21-32); CREATININE 0.8 mg/dL (0.55-1.02); GLUCOSE,RANDOM 93 mg/dL (74-106); POTASSIUM 3.8 mmol/L (3.5-5.1); SGOT/AST 23 U/L (15-37); SGPT/ALT 17 U/L (12-78); SODIUM 140 mmol/L (136-145); TOT PROT 8.1 g/dl (6.4-8.2)
[2018-04-14 22:24] LABS: ANISOCYTOSIS 1+; PLATELET ESTIMATE ADEQUATE
--- NOTE | 2018-04-14 22:32 | PDOC ---
History of Present Illness <China Tolbert - Last Filed: 04/14/18 23:04> - General History Source: Patient Exam Limitations: No Limitations - History of Present Illness Initial Comments: 04/15/18 00:44 Patient is a 27 year old female with a significant past medical history of P.E, who presents to the ED with complaints of throat pain that began earlier this week. Patient reports experiencing gradually increased throat pain with associated head pain, non productive cough, and nasal congestion, prompting her to come into the ED for further evaluation. Patient's Pulse Ox was noticed to be 90 in triage but 94 once brought into the ED. Chest x ray conducted with results showing no obvious infiltrates. Denies chest pain,. Denies nausea, vomiting. Denies fevers, chills. Denies contact with sick individuals, out of state travelling. Denies dysuria, hematuria. Denies any other symptoms. Allergies: none Social history: No smoking. No alcohol. No illicit drugs. Surgical history: Mitral Valve replacement. PMD: Dr. Russel corbett <Justo Brito - Last Filed: 04/15/18 00:45> - General Chief Complaint: Chest Pain Stated Complaint: COLD SYMPTOMS Time Seen by Provider: 04/14/18 20:21 Past History - Past Medical History Cardiac Disorders: Yes (Mitral VALVE [id number]) COPD: No DVT: No Dementia: No Psychiatric Problems: Yes (PANIC ATTACK) Other medical history: Pulmonary Embolus - Surgical History Cardiac Surgery: Yes (mitral VALVE REPLACEMENT 2011) - Immunization History Immunization Up to Date: Yes - Suicide/Smoking/Psychosocial Hx Smoking History: Never smoked Have you smoked in the past 12 months: No Information on smoking cessation initiated: No Hx Alcohol Use: No Drug/Substance Use Hx: No Substance Use Type: None <China Tolbert - Last Filed: 04/14/18 23:04> <Justo Brito - Last Filed: 04/15/18 00:45> - Past Medical History Allergies/Adverse Reactions: Allergies Allergy/AdvReac Type Severity Reaction Status Date / Time No Known Allergies Allergy Verified 04/12/18 12:58 Home Medications: Ambulatory Orders Warfarin Sodium [Coumadin] 5 mg PO HS 04/14/18 Review of Systems - Review of Systems Able to Perform ROS?: Yes Comments:: 04/15/18 00:44 CONSTITUTIONAL: Absent: fever, chills, diaphoresis, generalized weakness, malaise, loss of appetite HEENT: +Sore throat. +Head pain. Absent: rhinorrhea, nasal congestion, throat swelling, difficulty swallowing, mouth swelling, ear pain, eye pain, visual changes CARDIOVASCULAR: Absent: chest pain, syncope, palpitations, irregular heart rate, lightheadedness , peripheral edema RESPIRATORY: +cough. Absent: shortness of breath, dyspnea with exertion, orthopnea, wheezing, stridor , hemoptysis GASTROINTESTINAL: Absent: abdominal pain, abdominal distension, nausea, vomiting, diarrhea, constipation, melena, hematochezia GENITOURINARY: Absent: dysuria, frequency, urgency, hesitancy, hematuria, flank pain, genital pain MUSCULOSKELETAL: Absent: myalgia, arthralgia, joint swelling SKIN: Absent: rash, itching, pallor HEMATOLOGIC/IMMUNOLOGIC: Absent: easy bleeding, easy bruising, lymphadenopathy, frequent infections ENDOCRINE: Absent: unexplained weight gain, unexplained weight loss, heat intolerance, cold intolerance NEUROLOGIC: Absent: headache, focal weakness or paresthesias, dizziness, unsteady gait, seizure, mental status changes, bladder or bowel incontinence PSYCHIATRIC: Absent: anxiety, depression, suicidal or homicidal ideation, hallucinations. <Justo Brito - Last Filed: 04/15/18 00:45> *Physical Exam - Vital Signs Last Vital Signs Temp Pulse Resp BP Pulse Ox 98.2 F 100 H 20 113/83 90 L 04/14/18 20:18 04/14/18 20:18 04/14/18 20:18 04/14/18 20:18 04/14/18 20:18 <China Tolbert - Last Filed: 04/14/18 23:04> - Vital Signs Last Vital Signs Temp Pulse Resp BP Pulse Ox 98.2 F 100 H 20 113/83 90 L 04/14/18 20:18 04/14/18 20:18 04/14/18 20:18 04/14/18 20:18 04/14/18 20:18 - Physical Exam Comments: 04/15/18 00:44 GENERAL: Well developed, well nourished. Awake and alert. In no acute distress. HEENT: Normocephalic, atraumatic. PERRLA, EOMI. No conjunctival pallor. Sclerae are non -icteric. Moist mucous membranes. Oropharynx is clear. NECK: Supple. Full ROM. No JVD. Carotid pulses 2+ and symmetric, without bruits. No thyromegaly. No lymphadenopathy. CARDIOVASCULAR: +Murmur. +Mechanical valve. Regular rate and rhythm. No rubs, or gallops. Distal pulses are 2+ and symmetric. PULMONARY: +Rhinorrhea. No evidence of respiratory distress. Lungs clear to auscultation bilaterally. No wheezing, rales or rhonchi. ABDOMINAL: Soft. Non-tender. Non-distended. No rebound or guarding. No organomegaly. Normoactive bowel sounds. MUSCULOSKELETAL Normal range of motion at all joints. No bony deformities or tenderness. No CVA tenderness. EXTREMITIES: No cyanosis. No clubbing. No edema. No calf tenderness. SKIN: Warm and dry. Normal capillary refill. No rashes. No jaundice. NEUROLOGICAL: Alert, awake, appropriate. Cranial nerves 2-12 intact. No deficits to light touch and temperature in face, upper extremities and lower extremities. No motor deficits in the in face, upper extremities and lower extremities. Normoreflexic in the upper and lower extremities. Normal speech. Toes are downgoing bilaterally. Gait is normal without ataxia. PSYCHIATRIC: Cooperative. Good eye contact. Appropriate mood and affect. <Justo Brito - Last Filed: 04/15/18 00:45> ED Treatment Course - LABORATORY CBC & Chemistry Diagram: 04/14/18 21:45 04/14/18 21:45 - ADDITIONAL ORDERS Additional order review: Laboratory Results 04/14/18 04/14/18 04/14/18 21:45 21:45 21:30 PT with INR 66.00 H INR 5.84 H* Sodium 140 Potassium 3.8 Chloride 106 Carbon Dioxide 26 Anion Gap 8 BUN 10 Creatinine 0.8 Creat Clearance w eGFR > 60 Random Glucose 93 Calcium 8.9 Total Bilirubin 1.2 H AST 23 ALT 17 Alkaline Phosphatase 87 Total Protein 8.1 Albumin 4.2 Urine HCG, Qual Negative 04/14/18 21:45 RBC 4.94 MCV 67.3 L MCHC 31.6 L RDW 21.0 H MPV 8.6 Neutrophils % 65.7 Lymphocytes % 20.4 D Monocytes % 6.8 Eosinophils % 5.9 H Basophils % 1.2 <China Tolbert - Last Filed: 04/14/18 23:04> - LABORATORY CBC & Chemistry Diagram: 04/14/18 21:45 04/14/18 21:45 - ADDITIONAL ORDERS Additional order review: Laboratory Results 04/14/18 04/14/18 04/14/18 21:45 21:45 21:30 PT with INR 66.00 H INR 5.84 H* Sodium 140 Potassium 3.8 Chloride 106 Carbon Dioxide 26 Anion Gap 8 BUN 10 Creatinine 0.8 Creat Clearance w eGFR > 60 Random Glucose 93 Calcium 8.9 Total Bilirubin 1.2 H AST 23 ALT 17 Alkaline Phosphatase 87 Total Protein 8.1 Albumin 4.2 Urine HCG, Qual Negative 04/14/18 21:45 RBC 4.94 MCV 67.3 L MCHC 31.6 L RDW 21.0 H MPV 8.6 Neutrophils % 65.7 Lymphocytes % 20.4 D Monocytes % 6.8 Eosinophils % 5.9 H Basophils % 1.2 - Medications Given in the ED: ED Medications Discontinued Medications Generic Name Dose Route Start Last Admin Trade Name Dwayne PRN Reason Stop Dose Admin Acetaminophen 650 mg 04/14/18 22:45 04/14/18 23:16 Tylenol - PO 04/14/18 22:46 650 mg ONCE ONE Administration Albuterol/Ipratropium 1 amp 04/14/18 22:39 04/14/18 23:16 Duoneb - NEB 04/14/18 22:40 1 amp ONCE ONE Administration <Justo Brito - Last Filed: 04/15/18 00:45> *DC/Admit/Observation/Transfer <China Tolbert - Last Filed: 04/14/18 23:04> - Attestations Scribe Attestion: 04/15/18 00:45 Documentation prepared by Justo Brito, acting as medical officer for China Tolbert MD. <Justo Brito - Last Filed: 04/15/18 00:45> Diagnosis at time of Disposition: H/O mitral valve replacement with mechanical valve, Cough, Nasal congestion, Viral URI, Supratherapeutic INR - Discharge Dispostion Disposition: HOME Condition at time of disposition: Stable - Referrals Referrals: Russel Corbett [Primary Care Provider] - - Patient Instructions Printed Discharge Instructions: DI for Cough -- Adult, DI for Nasal Congestion Additional Instructions: PLEASE FOLLOW UP WITH YOUR DOCTOR THIS WEEK - Post Discharge Activity
[2018-04-14] MEDS ORDERED: ALBUTEROL SO4 2.5/IPRATROPIUM 0.5 INH SOL 3 ML VIAL.NEB. NEB ONE ×2 (22:39→22:52)
[2018-04-14] MEDS ORDERED: ACETAMINOPHEN 325 MG TABLET (FP) PO ONE (22:45)
[2018-04-14] MEDS ORDERED: ACETAMINOPHEN 325 MG TABLET (FP) ONE (22:52)
--- NOTE | 2018-04-16 10:50 | EKG ---
Test Reason : Blood Pressure : / mmHG Vent. Rate : 094 BPM Atrial Rate : 094 BPM P-R Int : 148 ms QRS Dur : 086 ms QT Int : 368 ms P-R-T Axes : -11 041 -28 degrees QTc Int : 460 ms NORMAL SINUS RHYTHM PROLONGED QT ABNORMAL ECG WHEN COMPARED WITH ECG OF 18-JUN-2017 00:37, NO SIGNIFICANT CHANGE WAS FOUND Confirmed by JOSTIN SCHMITZ MD ([id number]) on 04/16/2018 10:49:57 AM Referred By: Confirmed By:JOSTIN SCHMITZ MD
== END 2018-04-14 23:30 | disposition home or self-care (01) ==
LOC: JER 20:10
PROC: 3E0F7GC Introduction of Other Therapeutic Substance into Respiratory Tract, Via Natural or Artificial Opening (ICD-10-PCS; principal; 2018-04-14)
DX: J06.9 Acute upper respiratory infection, unspecified (principal); R09.02 Hypoxemia; D68.8 Other specified coagulation defects; Z86.711 Personal history of pulmonary embolism; Z79.01 Long term (current) use of anticoagulants; Z95.4 Presence of other heart-valve replacement
CPT/HCPCS: 36415; 71046-TC-FY; 80053; 84703; 85025; 85610; 93005; 93010; 94640; 99283-25; J7620

== ENCOUNTER 2018-09-03 14:13 | Emergency (ER) | payer OTHER ==
[2018-09-03 14:23] VITALS: TEMP 98.2; BMI 18.8
--- NOTE | 2018-09-03 14:25 | PDOC ---
Rapid Medical Evaluation Chief Complaint: Respiratory Medical Evaluation: Allergies Allergy/AdvReac Type Severity Reaction Status Date / Time No Known Allergies Allergy Verified 04/12/18 12:58 Vital Signs Temp Pulse Resp BP Pulse Ox 98.2 F 103 H 18 101/58 L 95 09/03/18 14:17 09/03/18 14:17 09/03/18 14:17 09/03/18 14:17 09/03/18 14:17 I have performed a brief in-person evaluation of this patient. The patient presents with a chief complaint of: Hx of mitral valve replacement 2011 (on Coumadin) Dry cough x 2 days along with mild nasal/chest congestion. Denies CP/SOB; mentions taking in deep breaths causes her to cough, but denies pain in chest Pertinent physical exam findings: Lungs clear, in NAD I have ordered the following: UCG The patient will proceed to the ED for further evaluation. 09/03/18 14:24 Discharge Disposition - Discharge Dispostion Condition at time of disposition: Stable - Referrals - Patient Instructions - Post Discharge Activity
--- NOTE | 2018-09-03 17:04 | PDOC ---
History of Present Illness - General Chief Complaint: Respiratory Stated Complaint: CHEST PAIN Time Seen by Provider: 09/03/18 16:47 History Source: Patient Exam Limitations: No Limitations Past History - Past Medical History Allergies/Adverse Reactions: Allergies Allergy/AdvReac Type Severity Reaction Status Date / Time No Known Allergies Allergy Verified 04/12/18 12:58 Home Medications: Ambulatory Orders Warfarin Sodium [Coumadin] 5 mg PO HS 04/14/18 Cardiac Disorders: Yes (Mitral VALVE [id number]) COPD: No DVT: No Dementia: No Psychiatric Problems: Yes (PANIC ATTACK) - Surgical History Cardiac Surgery: Yes (mitral VALVE REPLACEMENT 2011) - Immunization History Immunization Up to Date: Yes - Suicide/Smoking/Psychosocial Hx Smoking History: Never smoked Have you smoked in the past 12 months: No Information on smoking cessation initiated: No Hx Alcohol Use: No Drug/Substance Use Hx: No Substance Use Type: None *Physical Exam - Vital Signs Last Vital Signs Temp Pulse Resp BP Pulse Ox 98.2 F 103 H 18 101/58 L 95 09/03/18 14:17 09/03/18 14:17 09/03/18 14:17 09/03/18 14:17 09/03/18 14:17 Moderate Sedation - Procedure Monitoring Vital Signs: Procedure Monitoring Vital Signs Temperature 98.2 F 09/03/18 14:17 Pulse Rate 103 H 09/03/18 14:17 Respiratory Rate 18 09/03/18 14:17 Blood Pressure 101/58 L 09/03/18 14:17 O2 Sat by Pulse Oximetry (%) 95 09/03/18 14:17 ED Treatment Course - LABORATORY CBC & Chemistry Diagram: 09/03/18 17:24 09/03/18 17:24 - ADDITIONAL ORDERS Additional order review: Laboratory Results 09/03/18 15:40 Urine HCG, Qual Negative Medical Decision Making - Medical Decision Making Pt was seen at bedside, also will be seen by attending Dr. Redmond. Pt presenting with dry nasal congestion, dry cough, chest tightness, and frontal headache x2 days. Pt stated her INR tested on Saturday this week was 2.1, done in her PCPs office. PE showed [] Considering viral URI vs pneumonia vs PE vs endocarditis vs ACS. Pt has complex history with MV replacement, period of non-compliance with anti-coagulants, and PE. Pt currently anti-coagulated, but had variable INR (supratherapeutic and subtherapeutic over the past 6 months). Ordered work-up including CBC, CMP, PT/INR, D-dimer, troponin and chest x-ray. Provided 650 mg PO tylenol and albuterol nebulizer treatment for improvement of headache and chest tightness. Will continue to reassess pt and monitor for symptomatic improvement. Labs sent and pending. Chest x-ray will be obtained shortly. ECG: HR 96, intervals WNL, NSR. TWIs in inferior leads, flattened in lateral leads (compared to prior ECG 03/2018) -- will obtain troponin considering new ST segment changes. 09/03/18 17:58 CBC: generally WNL, pt anemic but within her baseline. CMP WNL. Trop <.02 Chest x-ray showed mild hilar thickening compared to prior x-ray, no lobar infiltrates. Pending INR and D-dimer. 09/03/18 18:31 D-dimer negative (263). INR 3.74 Considering normal lab results and imaging pt can be discharged to home with follow-up. Pt advised to follow-up with PCP in 1-2 days. Strict return precautions provided with pt understanding. 09/03/18 18:48 HR in the 90s, O2 sat 92-95% on RA, pt had thick acrylic nails on, difficult to obtain accurate O2. Pt not dyspneic, moving much better air after the nebulizer treatment, able to ambulate with no discomfort on RA. 09/03/18 19:26 *DC/Admit/Observation/Transfer Diagnosis at time of Disposition: Viral URI, H/O mitral valve replacement with mechanical valve - Discharge Dispostion Disposition: HOME Condition at time of disposition: Good Decision to Admit order: No - Referrals Referrals: Cas Montilla MD [Primary Care Provider] - - Patient Instructions Printed Discharge Instructions: DI for Viral Upper Respiratory Infection -- Adult Additional Instructions: You were seen in the ER today for cough, chest pressure, and congestion. The results of your labs and imaging today were normal. Please follow-up with your primary care doctor within 1-2 days to discuss your visit and make sure your symptoms have improved. Please return to the ER if you have any worsening chest pressure or shortness of breath, development of fevers or chills, loss of consciousness, inability to tolerate food or fluids, or any other concerns. INR today: 3.74 D-dimer 263 - Post Discharge Activity
[2018-09-03] MEDS ORDERED: ACETAMINOPHEN 325 MG TABLET (FP) PO ONE (17:05)
[2018-09-03] MEDS ORDERED: ALBUTEROL SO4 0.083% IH SOL 2.5 MG/3 ML VIAL.NEB. NEB ONE ×2 (17:05→17:18)
[2018-09-03] MEDS ORDERED: ACETAMINOPHEN 325 MG TABLET (FP) ONE (17:18)
[2018-09-03 18:08] LABS: BASO % 0.8 % (0-2.0); EOS % 2.2 % (0-4.5); HEMOGLOBIN 10.2 GM/dL (10.7-15.3); LYMPH % 14.2 % (8-40); MCH 22.6 pg (25.7-33.7); MCHC 32.1 g/dl (32.0-36.0); MEAN CELL VOLUME 70.5 fl (80-96); MONO % 7.3 % (3.8-10.2); NEUT % 75.5 % (42.8-82.8); PLATELET COUNT 220 K/MM3 (134-434); RBC 4.54 M/mm3 (3.60-5.2); RDW 20.9 % (11.6-15.6); WHITE BLOOD COUNT 7.4 K/mm3 (4.0-10.0)
--- NOTE | 2018-09-03 18:10 | PDOC ---
Attending Attestation - Resident Resident Name: Dianna Khan - ED Attending Attestation I have performed the following: I have examined & evaluated the patient, The case was reviewed & discussed with the resident, I agree w/resident's findings & plan, Exceptions are as noted - HPI HPI: 09/03/18 18:08 The patient is a 27 year old female with a significant PMH of PE and mitral valve replacement in 2011 on coumadin who presents to the emergency department with dry cough, nasal congestion, and chest tightness for the past 2 days. Patient is also complaining of a frontal headache for the past three days, for which she took Tylenol with some improvement. Patient notes the chest tightness when she coughs. Denies any chest pain at rest. Pt states that she has multiple family members with similar symptoms. Patient states she had her INR checked 2 days ago by her PCPs office, which was 2 then. The patient denies shortness of breath. Denies leg swelling. Denies fever, chills, nausea, vomit, diarrhea and constipation. Denies dysuria, frequency, urgency and hematuria. Allergies: NKA Past surgical history: None reported. Social history: No reported alcohol, drug, or cigarette use. PCP: Dr. Cas Montilla - Physicial Exam PE: 09/03/18 18:09 "GENERAL: Awake, alert, and fully oriented, in no acute distress. HEAD: No signs of trauma EYES: PERRLA, EOMI, sclera anicteric, conjunctiva clear ENT: Auricles normal inspection, hearing grossly normal, nares patent, oropharynx clear without exudates. Moist mucosa NECK: Nontender, no stepoffs, Normal ROM, supple, no lymphadenopathy, JVD, or masses LUNGS: Breath sounds equal, clear to auscultation bilaterally. No wheezes, and no crackles HEART: Regular rate and rhythm, normal S1 and S2, no murmurs, rubs or gallops ABDOMEN: Soft, nontender, normoactive bowel sounds. No guarding, no rebound. No masses EXTREMITIES: Normal range of motion, no edema. No clubbing or cyanosis. No cords, erythema, or tenderness NEUROLOGICAL: Cranial nerves II through XII intact. 5/5 strength and sensation in all extremities, Normal speech, normal gait, normal cerebellar function SKIN: Warm, Dry, normal turgor, no rashes or lesions noted. - Medical Decision Making 09/03/18 18:09 27 F with URI-like symptoms. Suspect viral syndrome. However, pt has h/o PE and is complaining of tightness in her chest with coughing. Pt also mildly tachycardic in ED. Will need to r/o PE. Pt without chest pain currently. Low suspicion for cardiac pathology. However, EKG today shows worsening T wave flattening in lateral leads. WIll r/o ACS with single trop. - Labs, ddimer, trop - CXR - CTA if indicated 09/03/18 18:52 Labs wnl Trop an ddimer negative CXR clear on my read Suspect viral illness. Pt is well appearing, with normal vitals. Clinically stable for DC at this time. I discussed the physical exam findings, ancillary test results and final diagnoses with the patient. I answered all of the patient's questions. The patient was satisfied with the care received and felt comfortable with the discharge plan and treatment plan. The patient agrees to follow up with the primary care physician within 24-72 hours.
[2018-09-03 18:25] LABS: ALBUMIN 3.8 g/dl (3.4-5.0); ALK PHOS 74 U/L (45-117); ANION GAP 8 MMOL/L (8-16); BILIRUBIN,TOTAL 1.3 mg/dL (0.2-1); BLOOD UREA NITROGEN 11 mg/dL (7-18); CHLORIDE 105 mmol/L (98-107); CO2 24 mmol/L (21-32); CREATININE 0.7 mg/dL (0.55-1.3); GLUCOSE,RANDOM 79 mg/dL (74-106); POTASSIUM 3.7 mmol/L (3.5-5.1); SGOT/AST 19 U/L (15-37); SGPT/ALT 16 U/L (13-61); SODIUM 138 mmol/L (136-145); TOT PROT 7.6 g/dl (6.4-8.2)
[2018-09-03 18:52] LABS: INR 3.74 (0.83-1.09); PROTHROMBIN TIME (PATIENT) 44.7 SEC (9.7-13.0)
[2018-09-03 19:32] VITALS: BP 104/64; PULSE 98
[2018-09-03 19:43] LABS: ANISOCYTOSIS 2+; MACROCYTOSIS 2+; PLATELET ESTIMATE ADEQUATE
--- NOTE | 2018-09-04 11:58 | EKG ---
Test Reason : Blood Pressure : / mmHG Vent. Rate : 096 BPM Atrial Rate : 096 BPM P-R Int : 164 ms QRS Dur : 082 ms QT Int : 352 ms P-R-T Axes : -17 051 -56 degrees QTc Int : 444 ms NORMAL SINUS RHYTHM ABNORMAL ECG WHEN COMPARED WITH ECG OF 14-APR-2018 20:38, NONSPECIFIC T WAVE ABNORMALITY NOW EVIDENT IN LATERAL LEADS Confirmed by AZAEL FLETCHER, RASHMI ([id number]) on 09/04/2018 11:58:10 AM Referred By: Confirmed By:RASHMI ADDISON MD
== END 2018-09-03 19:35 | disposition home or self-care (01) ==
LOC: JER 14:13
PROC: 3E0F7GC Introduction of Other Therapeutic Substance into Respiratory Tract, Via Natural or Artificial Opening (ICD-10-PCS; principal; 2018-09-03)
DX: J06.9 Acute upper respiratory infection, unspecified (principal); B97.89 Other viral agents as the cause of diseases classified elsewhere; I05.9 Rheumatic mitral valve disease, unspecified
CPT/HCPCS: 36415; 71046-TC-FY; 80053; 84484; 84703; 85025; 85379; 85610; 93005; 93010; 94640; 99283-25